=== PATIENT | female | born 1970 | race Caucasian/White ===

== ENCOUNTER 2016-12-16 06:30 | Emergency (ER) | payer MEDICAID | END 2016-12-16 07:54 | disposition home or self-care (01) | LOC: D.ER 06:30 | DX: S93.401A Sprain of unspecified ligament of right ankle, initial encounter (principal); X58.XXXA Exposure to other specified factors, initial encounter; Y93.89 Activity, other specified; Y92.89 Other specified places as the place of occurrence of the external cause; F17.200 Nicotine dependence, unspecified, uncomplicated ==

== ENCOUNTER 2017-07-23 21:02 | Emergency (ER) | payer MEDICAID | END 2017-07-23 23:33 | disposition home or self-care (01) | LOC: D.ER 21:02 | DX: J01.90 Acute sinusitis, unspecified (principal); H66.92 Otitis media, unspecified, left ear; J02.0 Streptococcal pharyngitis; E11.9 Type 2 diabetes mellitus without complications; I10 Essential (primary) hypertension; F17.200 Nicotine dependence, unspecified, uncomplicated ==

== ENCOUNTER 2018-04-19 03:56 | Emergency (ER) | payer MEDICARE ==
[~2018-04-19] VITALS: Ht 154.9 cm; Wt 60.5 kg
[2018-04-19 03:59] VITALS: Ht 154.9 cm; Wt 60.5 kg
[2018-04-19] MEDS ORDERED: CYCLOBENZAPRINE10 MG ×2 (04:00→04:01)
[2018-04-19] MEDS ORDERED: GLUCOPHAGE500 MG (04:00)
[2018-04-19] MEDS ORDERED: ABILIFY10 MG (04:00)
[2018-04-19] MEDS ORDERED: KLONOPIN1 MG PO (04:00)
[2018-04-19] MEDS ORDERED: MINOCIN100 MG PO (04:16)
[2018-04-19] MEDS ORDERED: NORCO 7.5/325 T1 TA1 PO (04:17)
[2018-04-19 05:03] VITALS: BP 101/69
== END 2018-04-19 05:03 | disposition home or self-care (01) ==
LOC: D.ER 03:56
DX: L02.31 Cutaneous abscess of buttock (principal); L03.317 Cellulitis of buttock; E11.9 Type 2 diabetes mellitus without complications